=== PATIENT | female | born 1960 | race Caucasian/White ===

== ENCOUNTER 2018-06-08 11:45 | Emergency (ER) | payer BC ==
[2018-06-08] MEDS: IBUPROFEN 600 MG TAB PO (12:13)
[2018-06-08] MEDS: HYDROCODONE/APAP (5/325) TAB PO (12:13)
== END 2018-06-08 14:04 | disposition home or self-care (01) ==
LOC: FTE 11:45
DX: S52.122A Displaced fracture of head of left radius, initial encounter for closed fracture (principal); W18.39XA Other fall on same level, initial encounter; Y92.9 Unspecified place or not applicable
CPT/HCPCS: 29105; 73080-LT; 73110-LT; 99283-25

== ENCOUNTER 2018-06-13 18:07 | Emergency (ER) | payer BC | END 2018-06-13 20:18 | disposition home or self-care (01) | LOC: FTE 18:07 | DX: S52.125A Nondisplaced fracture of head of left radius, initial encounter for closed fracture (principal); X58.XXXA Exposure to other specified factors, initial encounter; Y92.9 Unspecified place or not applicable | CPT/HCPCS: 29105; 99282-25 ==